=== PATIENT | male | born 1950 | race Caucasian/White ===

== ENCOUNTER → 2017-01-01 | Outpatient (CLI) | payer OTHER ==
[~2017-01-01] MED LIST: ASPI81TA28 PO; ATEN-175 PO; BCTO EXT; BENZ1TAB2 PO; CITA20TA4 PO; DTR/5 PO; FENO134C2 PO; MULT-506 PO; NIAC1TAB59 PO; OMEG10007 PO; PERP1TAB PO; SIMV40TA2 PO
== END | disposition home or self-care (01) ==
LOC: C.LABMFLN 11:51
PROVIDERS: ATTEND Urology
DX: R35.1 Nocturia (principal); R33.9 Retention of urine, unspecified; N39.0 Urinary tract infection, site not specified